=== PATIENT | male | born 1960 | race Caucasian/White ===

== ENCOUNTER → 2017-11-27 11:06 | Outpatient (CLI) | payer OTHER, MEDICAID, SELFPAY ==
--- NOTE | 2017-11-27 | DI.US.S_ITS ---
PROCEDURE: US ABDOMEN COMPLETE INDICATIONS: ABDOMINAL PAIN TECHNIQUE: Real-time scanning was performed of the abdominal and retroperitoneal organs, with image documentation. COMPARISON: None. FINDINGS: Liver: Liver is normal in size and homogeneous in increased echotexture. Gallbladder: No cholelithiasis. Normal gallbladder wall thickness. No pericholecystic fluid. Negative sonographic Brown's sign. Biliary ducts: Intrahepatic bile ducts are non-dilated. Extrahepatic bile duct caliber measures 6 mm. Normal is 6-7 mm or less in diameter, or 10 mm or less post-cholecystectomy. Pancreas: Visualized portions of the pancreas are sonographically normal. Spleen: Spleen is minimally enlarged in size and homogeneous in echotexture. Kidneys: Kidneys are normal in size and echotexture. Right kidney measures 10.4 cm long; left kidney measures 11.3 cm long. No hydronephrosis or nephrolithiasis. No solid masses. Aorta: Visualized aorta is normal in caliber at less than 3 cm. Iliacs: Obscured by gas. IVC: Obscured by bowel gas. Miscellaneous: Fat-containing anterior abdominal wall hernia immediately to the right of the umbilicus with opening measuring 1.0 x 1.9 cm. IMPRESSION: 1. Increased echogenicity most consistent with mild fatty infiltration. 2. Minimal splenomegaly. 3. Small fat-containing anterior abdominal wall hernia. Dictated by: Sd Hooks M.D. on 11/27/2017 at 13:10 Approved by: Sd Hooks M.D. on 11/27/2017 at 13:13
== END ==
PROVIDERS: Visit Provider Physician Assistant Medical
DX: R10.9 Unspecified abdominal pain (principal); R16.1 Splenomegaly, not elsewhere classified; K43.9 Ventral hernia without obstruction or gangrene
CPT/HCPCS: 76700

== ENCOUNTER → 2018-08-04 08:09 | Outpatient (CLI) | payer OTHER, MEDICAID, SELFPAY ==
[2018-08-04 10:28] LABS: Alanine Aminotransferase 38 IU/L (21-72); Albumin 4.5 g/dL (3.5-5.0); Albumin Globulin Ratio 1.7 (1.0-2.8); Alkaline Phosphatase 67 U/L (38-126); Aspartate Aminotransferase 28 IU/L (17-59); Bilirubin Total 1.3 mg/dL (0.2-1.3); Blood Urea Nitrogen 17 mg/dL (9-20); Calcium 9.6 mg/dL (8.4-10.2); Carbon Dioxide 31 mmol/L (22-32); Chloride 98 mmol/L (98-107); Cholesterol 197 mg/dL (140-199); Estimated Glomerular Filt Rate > 60.0 mL/min (>60); Globulin 2.6 g/dL (1.7-4.1); Glucose 100 mg/dL (70-100); HDL Cholesterol 32 mg/dL (40-60); HEMOLYSIS < 15 (0-50); LDL Cholesterol Calculated 113 mg/dL (<100); Potassium 4.2 mmol/L (3.4-5.1); Sodium 139 mmol/L (137-145); Total Protein 7.1 g/dL (6.3-8.2); Triglycerides 261 mg/dL (35-150)
== END ==
PROVIDERS: Visit Provider Physician Assistant Medical
DX: E78.00 Pure hypercholesterolemia, unspecified (principal)
CPT/HCPCS: 36415; 80053; 80061

== ENCOUNTER 2019-10-14 09:45 | Outpatient (RCR) | payer OTHER, MEDICAID, SELFPAY ==
--- NOTE | 2019-08-17 17:22 | PT.OIE ---
Current Diagnoses Radiculopathy, lumbar region (08/12/19) Visit Care Team Role Provider Type Sari Ford PA-C Attending Provider Non-Staff Primary Care Provider Referring Provider Specialty: Family Practice Address: [address] [place] [address], [id number] Email: Physical Therapy Initial Evaluation PT-OP-A Visit Information Start: 08/12/19 07:48 Freq: Status: Active Protocol: Document 08/12/19 11:15 [facility] (Rec: 08/17/19 17:21 [facility] [email or web address]) Out-Patient Physical Therapy Visit Information Visit Information Visit Type Initial Evaluation Visit Start Time 11:15 Visit Stop Time 12:00 Total Visit Minutes 45 Visit Number 1 Evaluation Information Evaluation Date 08/12/19 PT-OP-B Current Condition Start: 08/12/19 07:48 Freq: Status: Active Protocol: Document 08/12/19 14:15 [facility] (Rec: 08/12/19 14:23 [facility] [email or web address]) Current Condition History of Current Condition Onset Date May 2019 Current Complaints right sided sciatica History of Current Condition Mustapha reports his symptoms began late May when he was helping a neighbor move [email or web address]. His symptoms began with LBP and then progressed to right sided buttock pain and radicular pain down the right leg to the lateral aspect of his right foot. He notes this pain has effected his walking and now he is experiencing left sided knee pain. He has been on Gabapentin for nerve pain but doesn't feel this has helped. He did do a course of prednisone from 07/30/19-08/02 and this helped quite a bit but then the pain returned once he was done with the dose of prednisone. He reports he was ready to ask for more prednisone but then yesterday her made him self weed x 2 hours. He was bent over the whole time stretching his back and today his pain levels are much decreased. Treatment Goals Patient/Caregiver Goals to return to his prior level of function without pain Current Functional Impairments (Reported) Functional Limitations- Recreation/ limited in walking due to Hobbies radicular pain, pain with standing for long duration PT-OP-C Subjective Start: 08/12/19 07:48 Freq: Status: Active Protocol: Document 08/12/19 14:23 [facility] (Rec: 08/12/19 14:24 [facility] [email or web address]) OP-PT Pain Assessment Location Right LE Pain Location Details pain from right gluteal region down the right LE to the lateral foot Intensity 8 Scale Used Numeric (1 - 10) Description Radiating Frequency Constant Comments Pain Comments Ice helps so patient is icing often PT-OP-J Posture/Palpation/Skin Start: 08/12/19 07:48 Freq: Status: Active Protocol: Document 08/12/19 14:27 [facility] (Rec: 08/12/19 14:27 [facility] [email or web address]) Palpation Assessment Location One Palpation Location lumbar paraspinals Palpation Findings Soft Tissue Tightness,Muscle Guarding Palpation Details Muscle guarding and tightness of the lumbar paraspinals musculature PT-OP-K Range of Motion Start: 08/12/19 07:48 Freq: Status: Active Protocol: Document 08/12/19 14:24 [facility] (Rec: 08/12/19 14:25 [facility] [email or web address]) Lumbar Spine Range of Motion Lumbar Spine Active Flexion 80 Extension 15 Rotation Left 30 Rotation Right 30 Lateral Flexion Left 15 Lateral Flexion Right 15 ROM Limitations Soft Tissue Tightness Comments pain is not reproduced with lumbar spine ROM today Hip Goniometric Range of Motion Hip ROM Limitations Hip ROM Limitations Soft Tissue Tightness Comments pain in the right calf with hip flexion, pain in the right gluteal region with hip ER in piriformis stretch PT-OP-L Special Tests Start: 08/12/19 14:25 Freq: Status: Active Protocol: Document 08/12/19 14:25 [facility] (Rec: 08/12/19 14:26 [facility] [email or web address]) Special Tests Lumbar Spine Special Tests Straight Leg Raise Test Results + Comments right leg pain reproduced with SLR R PT-OP-Q Treatments Start: 08/12/19 07:48 Freq: Status: Active Protocol: Document 08/12/19 14:27 [facility] (Rec: 08/12/19 14:28 [facility] [email or web address]) Therapeutic Exercises Supine Exercises 2 Supine Exercise Name lower trunk rotation Side bilateral Reps/Minutes x 5 reps 1 Supine Exercise Name single knee to chest stretch Reps/Minutes 1-2 reps x 30 seconds Sitting Exercises 1 Sitting Exercise Name seated lumbar flexion Reps/Minutes 2 reps at 30 seconds each Standing Exercises 1 Standing Exercise Name standing dynamic hamstring stretch Reps/Minutes x 10 reps PT-OP-T Assessment and Plan Start: 08/12/19 07:48 Freq: Status: Active Protocol: Document 08/12/19 14:29 [facility] (Rec: 08/12/19 14:30 [facility] [email or web address]) Physical Therapy Assessment Rehab Potential Rehabilitation Potential Excellent Evaluation Complexity Number of Personal Factors/Comorbidities 0 Number of Body Systems Impaired 1-2 Clinical Presentation at Evaluation Stable Impairments Impairments Activity Tolerance,Functional Activities,Pain,Soft Tissue Mobility,Tone Other Impairments muscle guarding and spams Goals Four Impairment hip tightness with + dural symptoms on SLR Intermediate Goal (LTG) Mustapha is able to stretch his piriformis and hamstring muscle without c/o dural tension LTG Duration 8 weeks Three Impairment muscle guarding and spasm of the lumbar paraspinals and piriformis Short Term Goal (STG) Mustapha is shown self release techniques to hold improve the fascial mobility of the piriformis and lumbar parspinal musculature STG Duration 4 weeks Two Impairment Pain prevents Mustapha from walking more than 1/2 mile Fire Management Officer Goal (LTG) Mustapha is able to increase his walking to 2-3 miles without complaints of radicular or buttock pain LTG Duration 8 weeks One Impairment Right sided radicular pain rated 8/10 Short Term Goal (STG) Pt reports overall reduced complaints of radicular pain to 1-2/10 STG Duration 5 weeks Assessment Summary Assessment Mustapha presents to physical therapy today with symptoms of low back pain and right sided sciatica symptoms. His symptoms began in May 2019 with low back pain after helping a neighbor move tile. His symptoms then progressed to right sided sciatic symptoms with chief complaints of pain in the right gluteal region. He also reports that his left knee has begun hurting due to compensation from his right side. He has tried a course of prednisone from 07/30/19-08/03/19 which helped quite a bit while he has on the prednisone. Once off the prednisone his symptoms returned. Yesterday though he reports he sent out and pulled weeds x 2 hours. He was bent from the waist and was really trying to stretch while he was pulling weeds. Today he woke up with considerably less pain. He was experiencing some of the lateral foot pain but notes it is not nearly what it has been. With examination SLR on the R is positive and there is muscle guarding and tightness of the lumbar paraspinals. I started Mustapha with lumbar flexion exercises today as the position he was in from weeding seemed to really help him. Treatment will progress to manual therapy techniques to help decrease muscle tightness and tension and a core stabilzation program as well has hip flexibility exercises. Physical Therapy Plan Frequency and Duration Frequency of Treatment 2x/Week Duration of Treatment 8 Plan of Care Start Date 08/12/19 Plan of Care End Date 10/07/19 Therapeutic Interventions Therapeutic Interventions Home Exercise Program,Manual Therapy,Patient/Caregiver Education,Self-Care/Home Management,Soft Tissue Mobilization,Therapeutic Exercises Next Visit Focus/Plan Next Note Type Treatment Note Next Visit Plan review stretches for the low back and begin soft tissue and myofascial release over the low back for the lumbar paraspinals
--- NOTE | 2019-08-17 17:24 | PT.OPPOC ---
Physical, Occupational & Speech Therapy At [facility] Current Diagnoses Radiculopathy, lumbar region (08/12/19) Visit Care Team Role Provider Type Sari Ford PA-C Attending Provider Non-Staff Primary Care Provider Referring Provider Specialty: Family Practice Address: [address] [place] [address], [id number] Email: Plan Of Care PT-OP-T Assessment and Plan Start: 08/12/19 07:48 Freq: Status: Active Protocol: Document 08/12/19 14:29 [facility] (Rec: 08/12/19 14:30 [facility] [email or web address]) Physical Therapy Assessment Rehab Potential Rehabilitation Potential Excellent Evaluation Complexity Number of Personal Factors/Comorbidities 0 Number of Body Systems Impaired 1-2 Clinical Presentation at Evaluation Stable Impairments Impairments Activity Tolerance,Functional Activities,Pain,Soft Tissue Mobility,Tone Other Impairments muscle guarding and spams Goals Four Impairment hip tightness with + dural symptoms on SLR Epic Kaleidoscope Analyst Goal (LTG) Mustapha is able to stretch his piriformis and hamstring muscle without c/o dural tension LTG Duration 8 weeks Three Impairment muscle guarding and spasm of the lumbar paraspinals and piriformis Short Term Goal (STG) Mustapha is shown self release techniques to hold improve the fascial mobility of the piriformis and lumbar parspinal musculature STG Duration 4 weeks Two Impairment Pain prevents Mustapha from walking more than 1/2 mile Halfway Goal (LTG) Mustapha is able to increase his walking to 2-3 miles without complaints of radicular or buttock pain LTG Duration 8 weeks One Impairment Right sided radicular pain rated 8/10 Short Term Goal (STG) Pt reports overall reduced complaints of radicular pain to 1-2/10 STG Duration 5 weeks Assessment Summary Assessment Mustapha presents to physical therapy today with symptoms of low back pain and right sided sciatica symptoms and radicular pain R His symptoms began in May 2019 with low back pain after helping a neighbor move tile. His symptoms then progressed to right sided sciatic symptoms to his right lateral foot with chief complaints of pain in the right gluteal region. He also reports that his left knee has started hurting due to compensation from his right side. He has tried a course of prednisone from 07/30/19-08/03/19 which helped quite a bit while he has on the prednisone. Once off the prednisone his symptoms returned. Yesterday though he reports he went out and pulled weeds x 2 hours. He was bent from the waist and was really trying to stretch while he was pulling weeds. Today he woke up with considerably less pain. He was experiencing some of the lateral foot pain but notes it is not nearly what it has been. With examination SLR on the R is positive and there is muscle guarding and tightness of the lumbar paraspinals. I started Mustapha with lumbar flexion exercises today as the position he was in from weeding seemed to really help him. Treatment will progress to manual therapy techniques to help decrease muscle tightness and tension and a core stabilization program as well has hip flexibility exercises. Physical Therapy Plan Frequency and Duration Frequency of Treatment 2x/Week Duration of Treatment 8 Plan of Care Start Date 08/12/19 Plan of Care End Date 10/07/19 Therapeutic Interventions Therapeutic Interventions Home Exercise Program,Manual Therapy,Patient/Caregiver Education,Self-Care/Home Management,Soft Tissue Mobilization,Therapeutic Exercises Next Visit Focus/Plan Next Note Type Treatment Note Next Visit Plan review stretches for the low back and begin soft tissue and myofascial release over the low back for the lumbar paraspinals Plan of Care Dates Plan of Care Start Date 08/12/19 Plan of Care End Date 10/07/19 Electronically Signed by: Tonia Champion, PT 08/17/19 [id number] Please Sign and Return: I have reviewed this Plan of Care and certify that the skilled therapy services above are required to meet the patient?s needs. Physician Signature Date Printed Name and Credentials Clinical Instructor Signature Printed Name and Credentials
--- NOTE | 2019-08-19 12:52 | PT.OTN ---
Current Diagnoses Radiculopathy, lumbar region (08/19/19) Physical Therapy Treatment Note PT-OP-A Visit Information Start: 08/12/19 07:48 Freq: Status: Active Protocol: Document 08/19/19 12:44 [facility] (Rec: 08/19/19 12:52 [facility] [email or web address] Out-Patient Physical Therapy Visit Information Visit Information Visit Type Treatment Note Visit Start Time 09:45 Visit Stop Time 10:30 Total Visit Minutes 45 Visit Number 2 Evaluation Information Evaluation Date 08/12/19 PT-OP-B Current Condition Start: 08/12/19 07:48 Freq: Status: Active Protocol: Document 08/12/19 14:15 [facility] (Rec: 08/12/19 14:23 [facility] [email or web address]) Current Condition History of Current Condition Onset Date May 2019 Current Complaints right sided sciatica History of Current Condition Mustapha reports his symptoms began late May when he was helping a neighbor move tile. His symptoms began with LBP and then progressed to right sided buttock pain and radicular pain down the right leg to the lateral aspect of his right foot. He notes this pain has effected his walking and now he is experiencing left sided knee pain. He has been on Gabapentin for nerve pain but doesn't feel this has helped. He did do a course of prednisone from 07/30/19-08/02 and this helped quite a bit but then the pain returned once he was done with the dose of prednisone. He reports he was ready to ask for more prednisone but then yesterday her made him self weed x 2 hours. He was bent over the whole time stretching his back and today his pain levels are much decreased. Treatment Goals Patient/Caregiver Goals to return to his prior level of function without pain Current Functional Impairments (Reported) Functional Limitations- Recreation/ limited in walking due to Hobbies radicular pain, pain with standing for long duration PT-OP-C Subjective Start: 08/12/19 07:48 Freq: Status: Active Protocol: Document 08/19/19 12:44 [facility] (Rec: 08/19/19 12:52 [facility] [email or web address] OP-PT Subjective Patient Comments Patient Comments pt notes he hasn't gottne the relief from bending over and stretching his back while gardening that he did get last week. He continues to report right sided sciatic pain and buttock pain. This week he feels it into his anterior hip and he is not sure if this is from compensation or not. PT-OP-J Posture/Palpation/Skin Start: 08/12/19 07:48 Freq: Status: Active Protocol: Document 08/12/19 14:27 [facility] (Rec: 08/12/19 14:27 [facility] [email or web address]) Palpation Assessment Location One Palpation Location lumbar paraspinals Palpation Findings Soft Tissue Tightness,Muscle Guarding Palpation Details Muscle guarding and tightness of the lumbar paraspinal musculature PT-OP-K Range of Motion Start: 08/12/19 07:48 Freq: Status: Active Protocol: Document 08/12/19 14:24 [facility] (Rec: 08/12/19 14:25 [facility] [email or web address]) Lumbar Spine Range of Motion Lumbar Spine Active Flexion 80 Extension 15 Rotation Left 30 Rotation Right 30 Lateral Flexion Left 15 Lateral Flexion Right 15 ROM Limitations Soft Tissue Tightness Comments pain is not reproduced with lumbar spine ROM today Hip Goniometric Range of Motion Hip ROM Limitations Hip ROM Limitations Soft Tissue Tightness Comments pain in the right calf with hip flexion, pain in the right gluteal region with hip ER in piriformis stretch PT-OP-L Special Tests Start: 08/12/19 14:25 Freq: Status: Active Protocol: Document 08/12/19 14:25 [facility] (Rec: 08/12/19 14:26 [facility] [email or web address]) Special Tests Lumbar Spine Special Tests Straight Leg Raise Test Results + Comments right leg pain repoduced with SLR R PT-OP-Q Treatments Start: 08/12/19 07:48 Freq: Status: Active Protocol: Document 08/19/19 12:44 [facility] (Rec: 08/19/19 12:52 [facility] [email or web address]) Therapeutic Exercises Prone Exercises 1 Prone Exercise Name yamileth pose Reps/Minutes 1-2 reps holding 1-2 minutes Other Exercises 1 Other Exercise Name 1/2 kneeling hip flexor stretch Reps/Minutes 1-2 reps holding 1-2 minutes Manual Therapy Treatment Soft Tissue Mobilization 1 Body Location lumbar paraspinals, QL, piriformis Mobilization Type Myofascial Release Body Position Prone Comments prone over body pillow, MFR to release the tightness in the paraspinals. I found more tightness actually on the left paraspinals than the right. Decreased spinal mobility into extension of the upper lumbar and lower thoracic spine PT-OP-T Assessment and Plan Start: 08/12/19 07:48 Freq: Status: Active Protocol: Document 08/19/19 12:44 [facility] (Rec: 08/19/19 12:52 [facility] [email or web address]) Physical Therapy Assessment Assessment Summary Assessment lumbar paraspinal tightness was found left greater than right. Pt may benefit from a trial of lumbar traction next visit. Physical Therapy Plan Frequency and Duration Frequency of Treatment 2x/Week Duration of Treatment 8 Plan of Care Start Date 08/12/19 Plan of Care End Date 10/07/19 Therapeutic Interventions Therapeutic Interventions Home Exercise Program,Manual Therapy,Patient/Caregiver Education,Self-Care/Home Management,Soft Tissue Mobilization,Therapeutic Exercises Next Visit Focus/Plan Next Note Type Treatment Note Next Visit Plan review stretches for the low back and assess tolerance to myofascial release over the low back for the lumbar paraspinals. A trial of lumbar traction may be beneficial.
--- NOTE | 2019-08-26 17:28 | PT.OTN ---
Current Diagnoses Radiculopathy, lumbar region (08/26/19) Physical Therapy Treatment Note PT-OP-A Visit Information Start: 08/12/19 07:48 Freq: Status: Active Protocol: Document 08/26/19 16:45 DCW (Rec: 08/26/19 17:28 DCW [id number]) Out-Patient Physical Therapy Visit Information Visit Information Visit Type Treatment Note Visit Start Time 16:45 Visit Stop Time 17:30 Total Visit Minutes 45 Visit Number 3 Evaluation Information Evaluation Date 08/12/19 PT-OP-B Current Condition Start: 08/12/19 07:48 Freq: Status: Active Protocol: Document 08/12/19 14:15 [facility] (Rec: 08/12/19 14:23 [facility] [email or web address]) Current Condition History of Current Condition Onset Date May 2019 Current Complaints right sided sciatica History of Current Condition Mustapha reports his symptoms began late May when he was helping a neighbor move tile. His symptoms began with LBP and then progressed to right sided buttock pain and radicular pain down the right leg to the lateral aspect of his right foot. He notes this pain has effected his walking and now he is experiencing left sided knee pain. He has been on Gabapentin for nerve pain but doesn't feel this has helped. He did do a course of prednisone from 07/30/19-08/02 and this helped quite a bit but then the pain returned once he was done with the dose of prednisone. He reports he was ready to ask for more prednisone but then yesterday her made him self weed x 2 hours. He was bent over the whole time stretching his back and today his pain levels are much decreased. Treatment Goals Patient/Caregiver Goals to return to his prior level of function without pain Current Functional Impairments (Reported) Functional Limitations- Recreation/ limited in walking due to Hobbies radicular pain, pain with standing for long duration PT-OP-C Subjective Start: 08/12/19 07:48 Freq: Status: Active Protocol: Document 08/26/19 16:45 DCW (Rec: 08/26/19 17:28 DCW [id number]) OP-PT Subjective Patient Comments Patient Comments Pt reports he has been feeling a bit better, pain is around 5/10, but he was able to sleep better than usual last night. PT-OP-J Posture/Palpation/Skin Start: 08/12/19 07:48 Freq: Status: Active Protocol: Document 08/12/19 14:27 [facility] (Rec: 08/12/19 14:27 [facility] [email or web address]) Palpation Assessment Location One Palpation Location lumbar paraspinals Palpation Findings Soft Tissue Tightness,Muscle Guarding Palpation Details Muscle guarding and tightness of the lumbar paraspinal musculature PT-OP-K Range of Motion Start: 08/12/19 07:48 Freq: Status: Active Protocol: Document 08/12/19 14:24 [facility] (Rec: 08/12/19 14:25 [facility] [email or web address]) Lumbar Spine Range of Motion Lumbar Spine Active Flexion 80 Extension 15 Rotation Left 30 Rotation Right 30 Lateral Flexion Left 15 Lateral Flexion Right 15 ROM Limitations Soft Tissue Tightness Comments pain is not reproduced with lumbar spine ROM today Hip Goniometric Range of Motion Hip ROM Limitations Hip ROM Limitations Soft Tissue Tightness Comments pain in the right calf with hip flexion, pain in the right gluteal region with hip ER in piriformis stretch PT-OP-L Special Tests Start: 08/12/19 14:25 Freq: Status: Active Protocol: Document 08/12/19 14:25 [facility] (Rec: 08/12/19 14:26 [facility] [email or web address]) Special Tests Lumbar Spine Special Tests Straight Leg Raise Test Results + Comments right leg pain repoduced with SLR R PT-OP-Q Treatments Start: 08/12/19 07:48 Freq: Status: Active Protocol: Document 08/26/19 16:45 DCW (Rec: 08/26/19 17:28 DCW [id number]) Gym Equipment Therapeutic Ball 1 Exercise Details Low trunk rotations Ball Size/Color Red - 55 cm Body Position Supine Therapeutic Exercises Supine Exercises 5 Supine Exercise Name Piriformis stretch - knee to opposite shoulder Side bilateral 4 Supine Exercise Name Hamstring Stretch Side bilateral 3 Supine Exercise Name Psoas stretch Side bilateral Reps/Minutes 2x 40 Comments Leg off table 2 Supine Exercise Name lower trunk rotation Side bilateral Reps/Minutes x 5 reps Sitting Exercises 1 Sitting Exercise Name seated lumbar flexion Reps/Minutes 2 reps at 30 seconds each Manual Therapy Treatment Soft Tissue Mobilization 2 Body Location Piriformis Mobilization Type Strumming,Sustained Pressure, Trigger Point Release Intensity/Depth Deep Body Position Sidelying Manual Traction Lumbar Details Long-axis LE traction Body Position Supine PT-OP-T Assessment and Plan Start: 08/12/19 07:48 Freq: Status: Active Protocol: Document 08/26/19 16:45 DCW (Rec: 08/26/19 17:28 DCW [id number]) Physical Therapy Assessment Impairments Impairments Activity Tolerance,Functional Activities,Pain,Soft Tissue Mobility,Tone Other Impairments muscle guarding and spams Goals Four Impairment hip tightness with + dural symptoms on SLR Half-Way Goal (LTG) Mustapha is able to stretch his piriformis and hamstring muscle without c/o dural tension LTG Duration 8 weeks Three Impairment muscle guarding and spasm of the lumbar paraspinals and piriformis Short Term Goal (STG) Mustapha is shown self release techniques to hold improve the fascial mobility of the piriformis and lumbar parspinal musculature STG Duration 4 weeks Two Impairment Pain prevents Mustapha from walking more than 1/2 mile Casing Man Goal (LTG) Mustapha is maggi to increase his walking to 2-3 miles without complaints of radicular or buttock pain LTG Duration 8 weeks One Impairment Right sided radicular pain rated 8/10 Short Term Goal (STG) Pt reports overall reduced complaints of radicular pain to 1-2/10 STG Duration 5 weeks Assessment Summary Assessment Pt reported relief following traction and STM to right piriformis. Recommended pt use trnnis to self-mobilize piriformis, as well as HEP for HS and piriformis stretching. Continue flexibility training and STM with further therapy. Physical Therapy Plan Frequency and Duration Frequency of Treatment 2x/Week Duration of Treatment 8 Plan of Care Start Date 08/12/19 Plan of Care End Date 10/07/19 Therapeutic Interventions Therapeutic Interventions Home Exercise Program,Manual Therapy,Patient/Caregiver Education,Self-Care/Home Management,Soft Tissue Mobilization,Therapeutic Exercises Next Visit Focus/Plan Next Note Type Treatment Note Next Visit Plan review stretches for the low back and assess tolerance to myofascial release over the low back for the lumbar paraspinals. A trial of lumbar traction may be beneficial.
--- NOTE | 2019-08-31 18:25 | PT.OTN ---
Current Diagnoses Radiculopathy, lumbar region (08/31/19) Physical Therapy Treatment Note PT-OP-A Visit Information Start: 08/12/19 07:48 Freq: Status: Active Protocol: Document 08/31/19 18:13 [facility] (Rec: 08/31/19 18:24 [facility] [email or web address]) Out-Patient Physical Therapy Visit Information Visit Information Visit Type Treatment Note Visit Start Time 16:10 Visit Stop Time 16:55 Total Visit Minutes 45 Visit Number 4 PT-OP-B Current Condition Start: 08/12/19 07:48 Freq: Status: Active Protocol: Document 08/12/19 14:15 [facility] (Rec: 08/12/19 14:23 [facility] [email or web address]) Current Condition History of Current Condition Onset Date May 2019 Current Complaints right sided sciatica History of Current Condition Mustapha reports his symptoms began late May when he was helping a neighbor move tile. His symptoms began with LBP and then progressed to right sided buttock pain and radicular pain down the right leg to the lateral aspect of his right foot. He notes this pain has effected his walking and now he is experiencing left sided knee pain. He has been on Gabapentin for nerve pain but doesn't feel this has helped. He did do a course of prednisone from 07/30/19-08/02 and this helped quite a bit but then the pain returned once he was done with the dose of prednisone. He reports he was ready to ask for more prednisone but then yesterday her made him self weed x 2 hours. He was bent over the whole time stretching his back and today his pain levels are much decreased. Treatment Goals Patient/Caregiver Goals to return to his prior level of function without pain Current Functional Impairments (Reported) Functional Limitations- Recreation/ limited in walking due to Hobbies radicular pain, pain with standing for long duration PT-OP-C Subjective Start: 08/12/19 07:48 Freq: Status: Active Protocol: Document 08/31/19 18:13 [facility] (Rec: 08/31/19 18:24 [facility] [email or web address]) OP-PT Subjective Patient Comments Patient Comments pt reports he still hasn't been able to stretch his back like he did in the garden. He has been working on his stretching and ice is helping. Still c/o the nerve pain in the gluteal region with sciatica symptoms down right LE PT-OP-J Posture/Palpation/Skin Start: 08/12/19 07:48 Freq: Status: Active Protocol: Document 08/12/19 14:27 [facility] (Rec: 08/12/19 14:27 [facility] [email or web address]) Palpation Assessment Location One Palpation Location lumbar paraspinals Palpation Findings Soft Tissue Tightness,Muscle Guarding Palpation Details Muscle guarding and tightness of the lumbar paraspinal musculature PT-OP-K Range of Motion Start: 08/12/19 07:48 Freq: Status: Active Protocol: Document 08/12/19 14:24 [facility] (Rec: 08/12/19 14:25 [facility] [email or web address]) Lumbar Spine Range of Motion Lumbar Spine Active Flexion 80 Extension 15 Rotation Left 30 Rotation Right 30 Lateral Flexion Left 15 Lateral Flexion Right 15 ROM Limitations Soft Tissue Tightness Comments pain is not reproduced with lumbar spine ROM today Hip Goniometric Range of Motion Hip ROM Limitations Hip ROM Limitations Soft Tissue Tightness Comments pain in the right calf with hip flexion, pain in the right gluteal region with hip ER in piriformis stretch PT-OP-L Special Tests Start: 08/12/19 14:25 Freq: Status: Active Protocol: Document 08/12/19 14:25 [facility] (Rec: 08/12/19 14:26 [facility] [email or web address]) Special Tests Lumbar Spine Special Tests Straight Leg Raise Test Results + Comments right leg pain repoduced with SLR R PT-OP-Q Treatments Start: 08/12/19 07:48 Freq: Status: Active Protocol: Document 08/31/19 18:13 [facility] (Rec: 08/31/19 18:24 [facility] [email or web address]) Manual Therapy Treatment Soft Tissue Mobilization 2 Body Location Piriformis Mobilization Type Strumming,Sustained Pressure, Trigger Point Release Intensity/Depth Deep Body Position Sidelying 1 Body Location lumbar paraspinals, QL, piriformis Mobilization Type Myofascial Release Body Position Prone Comments prone over body pillow, MFR to release the tightness in the paraspinals. I found more tightness actually on the left paraspinals than the right. Decreased spinal mobility into extension of the upper lumbar and lower thoracic spine Manual Techniques 1 Type trial of myokinesthetic system L5-S1 Comments ccalf tightness on the right, talked to pt about increaseing stretching in his calfs and also rolling foot on golf ball while sitting for work PT-OP-T Assessment and Plan Start: 08/12/19 07:48 Freq: Status: Active Protocol: Document 08/31/19 18:13 [facility] (Rec: 08/31/19 18:24 [facility] [email or web address]) Physical Therapy Assessment Assessment Summary Assessment Tightness right gastroc/soleus comples with myokinesthetic system tx. Added in calf stretches and self mobilization of the ball of foot with small ball. Pt continues to self mobilize piriformis with tennis ball Physical Therapy Plan Frequency and Duration Frequency of Treatment 2x/Week Duration of Treatment 8 Plan of Care Start Date 08/12/19 Plan of Care End Date 10/07/19 Next Visit Focus/Plan Next Note Type Treatment Note Next Visit Plan review stretches for the low back and assess tolerance to myofascial release over the low back for the lumbar paraspinals. Lumbar traction
--- NOTE | 2019-09-02 12:05 | PT.OTN ---
Current Diagnoses Radiculopathy, lumbar region (09/02/19) Physical Therapy Treatment Note PT-OP-A Visit Information Start: 08/12/19 07:48 Freq: Status: Active Protocol: Document 09/02/19 11:15 DCW (Rec: 09/02/19 12:05 DCW [id number]) Out-Patient Physical Therapy Visit Information Visit Information Visit Type Treatment Note Visit Start Time 11:15 Visit Stop Time 12:00 Total Visit Minutes 45 Visit Number 5 Evaluation Information Evaluation Date 08/12/19 PT-OP-B Current Condition Start: 08/12/19 07:48 Freq: Status: Active Protocol: Document 08/12/19 14:15 [facility] (Rec: 08/12/19 14:23 [facility] [email or web address]) Current Condition History of Current Condition Onset Date May 2019 Current Complaints right sided sciatica History of Current Condition Mustapha reports his symptoms began late May when he was helping a neighbor move tile. His symptoms began with LBP and then progressed to right sided buttock pain and radicular pain down the right leg to the lateral aspect of his right foot. He notes this pain has effected his walking and now he is experiencing left sided knee pain. He has been on Gabapentin for nerve pain but doesn't feel this has helped. He did do a course of prednisone from 07/30/19-08/02 and this helped quite a bit but then the pain returned once he was done with the dose of prednisone. He reports he was ready to ask for more prednisone but then yesterday her made him self weed x 2 hours. He was bent over the whole time stretching his back and today his pain levels are much decreased. Treatment Goals Patient/Caregiver Goals to return to his prior level of function without pain Current Functional Impairments (Reported) Functional Limitations- Recreation/ limited in walking due to Hobbies radicular pain, pain with standing for long duration PT-OP-C Subjective Start: 08/12/19 07:48 Freq: Status: Active Protocol: Document 09/02/19 11:15 DCW (Rec: 09/02/19 12:05 DCW [id number]) OP-PT Subjective Patient Comments Patient Comments PT reports pain has been so bad the last two nights that he was woken up at 3 am and thought about going to the ER, but was able to better control pain with icing. PT-OP-J Posture/Palpation/Skin Start: 08/12/19 07:48 Freq: Status: Active Protocol: Document 08/12/19 14:27 [facility] (Rec: 08/12/19 14:27 [facility] [email or web address]) Palpation Assessment Location One Palpation Location lumbar paraspinals Palpation Findings Soft Tissue Tightness,Muscle Guarding Palpation Details Muscle guarding and tightness of the lumbar paraspinal musculature PT-OP-K Range of Motion Start: 08/12/19 07:48 Freq: Status: Active Protocol: Document 08/12/19 14:24 [facility] (Rec: 08/12/19 14:25 [facility] [email or web address]) Lumbar Spine Range of Motion Lumbar Spine Active Flexion 80 Extension 15 Rotation Left 30 Rotation Right 30 Lateral Flexion Left 15 Lateral Flexion Right 15 ROM Limitations Soft Tissue Tightness Comments pain is not reproduced with lumbar spine ROM today Hip Goniometric Range of Motion Hip ROM Limitations Hip ROM Limitations Soft Tissue Tightness Comments pain in the right calf with hip flexion, pain in the right gluteal region with hip ER in piriformis stretch PT-OP-L Special Tests Start: 08/12/19 14:25 Freq: Status: Active Protocol: Document 08/12/19 14:25 [facility] (Rec: 08/12/19 14:26 [facility] [email or web address]) Special Tests Lumbar Spine Special Tests Straight Leg Raise Test Results + Comments right leg pain repoduced with SLR R PT-OP-Q Treatments Start: 08/12/19 07:48 Freq: Status: Active Protocol: Document 09/02/19 11:15 DCW (Rec: 09/02/19 12:05 DCW [id number]) Gym Equipment Therapeutic Ball 2 Exercise Details Trunk rotations vs T-band resistance Ball Size/Color Green - 65 cm Lv 3 T-band Body Position Sitting Therapeutic Exercises Supine Exercises 5 Supine Exercise Name Piriformis stretch - knee to opposite shoulder Side bilateral 2 Supine Exercise Name lower trunk rotation Side bilateral Reps/Minutes x 5 reps Manual Therapy Treatment Soft Tissue Mobilization 3 Body Location Psoas Mobilization Type Sustained Pressure,Trigger Point Release Intensity/Depth Deep Body Position Supine 2 Body Location Piriformis Mobilization Type Strumming,Sustained Pressure, Trigger Point Release Intensity/Depth Deep Body Position Sidelying 1 Body Location lumbar paraspinals, QL, piriformis Mobilization Type Myofascial Release Body Position Prone PT-OP-T Assessment and Plan Start: 08/12/19 07:48 Freq: Status: Active Protocol: Document 09/02/19 11:15 DCW (Rec: 09/02/19 12:05 DCW [id number]) Physical Therapy Assessment Impairments Impairments Activity Tolerance,Functional Activities,Pain,Soft Tissue Mobility,Tone Other Impairments muscle guarding and spams Goals Four Impairment hip tightness with + dural symptoms on SLR Mcfp Goal (LTG) Mustapha is able to stretch his piriformis and hamstring muscle without c/o dural tension LTG Duration 8 weeks Three Impairment muscle guarding and spasm of the lumbar paraspinals and piriformis Short Term Goal (STG) Mustapha is shown self release techniques to hold improve the fascial mobility of the piriformis and lumbar parspinal musculature STG Duration 4 weeks Two Impairment Pain prevents Mustapha from walking more than 1/2 mile [employer] Goal (LTG) Mustapha is maggi to increase his walking to 2-3 miles without complaints of radicular or buttock pain LTG Duration 8 weeks One Impairment Right sided radicular pain rated 8/10 Short Term Goal (STG) Pt reports overall reduced complaints of radicular pain to 1-2/10 STG Duration 5 weeks Assessment Summary Assessment Pt again felt substantially better following his treatment session today, will hopefully be able to continue to decrease hypertonia throughout his paraspinal and hip musculature. Physical Therapy Plan Frequency and Duration Frequency of Treatment 2x/Week Duration of Treatment 8 Plan of Care Start Date 08/12/19 Plan of Care End Date 10/07/19 Therapeutic Interventions Therapeutic Interventions Home Exercise Program,Manual Therapy,Patient/Caregiver Education,Self-Care/Home Management,Soft Tissue Mobilization,Therapeutic Exercises Next Visit Focus/Plan Next Note Type Treatment Note Next Visit Plan review stretches for the low back and assess tolerance to myofascial release over the low back for the lumbar paraspinals. A trial of lumbar traction may be beneficial.
--- NOTE | 2019-09-07 15:12 | PT.OTN ---
Current Diagnoses Radiculopathy, lumbar region (09/07/19) Physical Therapy Treatment Note PT-OP-A Visit Information Start: 08/12/19 07:48 Freq: Status: Active Protocol: Document 09/07/19 15:07 [facility] (Rec: 09/07/19 15:12 [facility] [email or web address]) Out-Patient Physical Therapy Visit Information Visit Information Visit Type Treatment Note Visit Start Time 13:00 Visit Stop Time 13:45 Total Visit Minutes 45 Visit Number 6 PT-OP-B Current Condition Start: 08/12/19 07:48 Freq: Status: Active Protocol: Document 08/12/19 14:15 [facility] (Rec: 08/12/19 14:23 [facility] [email or web address]) Current Condition History of Current Condition Onset Date May 2019 Current Complaints right sided sciatica History of Current Condition Mustapha reports his symptoms began late May when he was helping a neighbor move tile. His symptoms began with LBP and then progressed to right sided buttock pain and radicular pain down the right leg to the lateral aspect of his right foot. He notes this pain has effected his walking and now he is experiencing left sided knee pain. He has been on Gabapentin for nerve pain but doesn't feel this has helped. He did do a course of prednisone from 07/30/19-08/02 and this helped quite a bit but then the pain returned once he was done with the dose of prednisone. He reports he was ready to ask for more prednisone but then yesterday her made him self weed x 2 hours. He was bent over the whole time stretching his back and today his pain levels are much decreased. Treatment Goals Patient/Caregiver Goals to return to his prior level of function without pain Current Functional Impairments (Reported) Functional Limitations- Recreation/ limited in walking due to Hobbies radicular pain, pain with standing for long duration PT-OP-C Subjective Start: 08/12/19 07:48 Freq: Status: Active Protocol: Document 09/07/19 15:07 [facility] (Rec: 09/07/19 15:12 [facility] [email or web address]) OP-PT Subjective Patient Comments Patient Comments pt reports he did really well after last visit and feels things are starting to get better now. He isn't getting the severe pain in his right gluteal or the lateral side of his right foot. He feels the work done on his hip flexor last visit really helped him. He also reports he is no longer taking the gabapentin and was put on Amitriptylene. PT-OP-J Posture/Palpation/Skin Start: 08/12/19 07:48 Freq: Status: Active Protocol: Document 08/12/19 14:27 [facility] (Rec: 08/12/19 14:27 [facility] [email or web address]) Palpation Assessment Location One Palpation Location lumbar paraspinals Palpation Findings Soft Tissue Tightness,Muscle Guarding Palpation Details Muscle guarding and tightness of the lumbar paraspinal musculature PT-OP-K Range of Motion Start: 08/12/19 07:48 Freq: Status: Active Protocol: Document 08/12/19 14:24 [facility] (Rec: 08/12/19 14:25 [facility] [email or web address]) Lumbar Spine Range of Motion Lumbar Spine Active Flexion 80 Extension 15 Rotation Left 30 Rotation Right 30 Lateral Flexion Left 15 Lateral Flexion Right 15 ROM Limitations Soft Tissue Tightness Comments pain is not reproduced with lumbar spine ROM today Hip Goniometric Range of Motion Hip ROM Limitations Hip ROM Limitations Soft Tissue Tightness Comments pain in the right calf with hip flexion, pain in the right gluteal region with hip ER in piriformis stretch PT-OP-L Special Tests Start: 08/12/19 14:25 Freq: Status: Active Protocol: Document 08/12/19 14:25 [facility] (Rec: 08/12/19 14:26 [facility] [email or web address]) Special Tests Lumbar Spine Special Tests Straight Leg Raise Test Results + Comments right leg pain repoduced with SLR R PT-OP-Q Treatments Start: 08/12/19 07:48 Freq: Status: Active Protocol: Document 09/07/19 15:07 [facility] (Rec: 09/07/19 15:12 [facility] [email or web address]) Manual Therapy Treatment Soft Tissue Mobilization 3 Body Location Psoas Mobilization Type Sustained Pressure,Trigger Point Release Intensity/Depth Deep Body Position Supine 2 Body Location Piriformis Mobilization Type Strumming,Sustained Pressure, Trigger Point Release Intensity/Depth Deep Body Position Sidelying 1 Body Location lumbar paraspinals, QL, piriformis Mobilization Type Myofascial Release Body Position Prone PT-OP-T Assessment and Plan Start: 08/12/19 07:48 Freq: Status: Active Protocol: Document 09/07/19 15:07 [facility] (Rec: 09/07/19 15:12 [facility] [email or web address]) Physical Therapy Assessment Assessment Summary Assessment Pt notes relief following treatment and has been trying to break up his computer work at home with stretches Physical Therapy Plan Frequency and Duration Frequency of Treatment 2x/Week Duration of Treatment 8 Plan of Care Start Date 08/12/19 Plan of Care End Date 10/07/19
--- NOTE | 2019-09-14 10:31 | PT.OTN ---
Current Diagnoses Radiculopathy, lumbar region (09/14/19) Physical Therapy Treatment Note PT-OP-A Visit Information Start: 08/12/19 07:48 Freq: Status: Active Protocol: Document 09/14/19 09:45 DCW (Rec: 09/14/19 10:31 DCW [id number]) Out-Patient Physical Therapy Visit Information Visit Information Visit Type Treatment Note Visit Start Time 09:45 Visit Stop Time 10:30 Total Visit Minutes 45 Visit Number 7 Evaluation Information Evaluation Date 08/12/19 PT-OP-B Current Condition Start: 08/12/19 07:48 Freq: Status: Active Protocol: Document 08/12/19 14:15 [facility] (Rec: 08/12/19 14:23 [facility] [email or web address]) Current Condition History of Current Condition Onset Date May 2019 Current Complaints right sided sciatica History of Current Condition Mustapha reports his symptoms began late May when he was helping a neighbor move tile. His symptoms began with LBP and then progressed to right sided buttock pain and radicular pain down the right leg to the lateral aspect of his right foot. He notes this pain has effected his walking and now he is experiencing left sided knee pain. He has been on Gabapentin for nerve pain but doesn't feel this has helped. He did do a course of prednisone from 07/30/19-08/02 and this helped quite a bit but then the pain returned once he was done with the dose of prednisone. He reports he was ready to ask for more prednisone but then yesterday her made him self weed x 2 hours. He was bent over the whole time stretching his back and today his pain levels are much decreased. Treatment Goals Patient/Caregiver Goals to return to his prior level of function without pain Current Functional Impairments (Reported) Functional Limitations- Recreation/ limited in walking due to Hobbies radicular pain, pain with standing for long duration PT-OP-C Subjective Start: 08/12/19 07:48 Freq: Status: Active Protocol: Document 09/14/19 09:45 DCW (Rec: 09/14/19 10:31 DCW [id number]) OP-PT Subjective Patient Comments Patient Comments Pt reports he is feeling a lot better, has been only at a 2/ 10 the past three days. PT-OP-J Posture/Palpation/Skin Start: 08/12/19 07:48 Freq: Status: Active Protocol: Document 08/12/19 14:27 [facility] (Rec: 08/12/19 14:27 [facility] [email or web address]) Palpation Assessment Location One Palpation Location lumbar paraspinals Palpation Findings Soft Tissue Tightness,Muscle Guarding Palpation Details Muscle guarding and tightness of the lumbar paraspinal musculature PT-OP-K Range of Motion Start: 08/12/19 07:48 Freq: Status: Active Protocol: Document 08/12/19 14:24 [facility] (Rec: 08/12/19 14:25 [facility] [email or web address]) Lumbar Spine Range of Motion Lumbar Spine Active Flexion 80 Extension 15 Rotation Left 30 Rotation Right 30 Lateral Flexion Left 15 Lateral Flexion Right 15 ROM Limitations Soft Tissue Tightness Comments pain is not reproduced with lumbar spine ROM today Hip Goniometric Range of Motion Hip ROM Limitations Hip ROM Limitations Soft Tissue Tightness Comments pain in the right calf with hip flexion, pain in the right gluteal region with hip ER in piriformis stretch PT-OP-L Special Tests Start: 08/12/19 14:25 Freq: Status: Active Protocol: Document 08/12/19 14:25 [facility] (Rec: 08/12/19 14:26 [facility] [email or web address]) Special Tests Lumbar Spine Special Tests Straight Leg Raise Test Results + Comments right leg pain repoduced with SLR R PT-OP-Q Treatments Start: 08/12/19 07:48 Freq: Status: Active Protocol: Document 09/14/19 09:45 DCW (Rec: 09/14/19 10:31 DCW [id number]) Gym Equipment Shuttle Recovery Unilateral Squats Resistance 75# Shuttle Recovery Platform Stable Reps/Time 2x15 Bilateral Squats Resistance 125# Shuttle Recovery Platform Stable Reps/Time 2x15 Shuttle Balance 1 Details Red Comments Wide TYESHA, Staggered Therapeutic Ball 2 Exercise Details Trunk rotations vs T-band resistance Ball Size/Color Green - 65 cm Lv 3 T-band Body Position Sitting Therapeutic Exercises Sidelying Exercises 1 Sidelying Exercise Name Open Book/Reach and Roll Side bilateral Other Exercises 2 Other Exercise Name Resisted Ambulation Resistance Blue Equipment Used T-band Comments Side-stepping 1 Other Exercise Name Thread the Needle Comments Quadruped Manual Therapy Treatment Soft Tissue Mobilization 3 Body Location Psoas Mobilization Type Sustained Pressure,Trigger Point Release Intensity/Depth Deep Body Position Supine 2 Body Location Piriformis Mobilization Type Strumming,Sustained Pressure, Trigger Point Release Intensity/Depth Deep Body Position Sidelying 1 Body Location lumbar paraspinals, QL, piriformis Mobilization Type Myofascial Release Body Position Prone PT-OP-T Assessment and Plan Start: 08/12/19 07:48 Freq: Status: Active Protocol: Document 09/14/19 09:45 DCW (Rec: 09/14/19 10:31 DCW [id number]) Physical Therapy Assessment Impairments Impairments Activity Tolerance,Functional Activities,Pain,Soft Tissue Mobility,Tone Other Impairments muscle guarding and spams Goals Four Impairment hip tightness with + dural symptoms on SLR Usp Goal (LTG) Mustapha is able to stretch his piriformis and hamstring muscle without c/o dural tension LTG Duration 8 weeks Three Impairment muscle guarding and spasm of the lumbar paraspinals and piriformis Short Term Goal (STG) Mustapha is shown self release techniques to hold improve the fascial mobility of the piriformis and lumbar parspinal musculature STG Duration 4 weeks Two Impairment Pain prevents Mustapha from walking more than 1/2 mile Box Nailer Goal (LTG) Mustapha is maggi to increase his walking to 2-3 miles without complaints of radicular or buttock pain LTG Duration 8 weeks One Impairment Right sided radicular pain rated 8/10 Short Term Goal (STG) Pt reports overall reduced complaints of radicular pain to 1-2/10 STG Duration 5 weeks Assessment Summary Assessment Pt doing very well at this time, came into his appointment with minimal complaints of pain, had no negative response with any TherEx or Manual therapy. If pt continues to do well, following his next scheduled appointment, recommend holding PT for a few weeks to ensure he does not worsen, and then discharge at an appropriate time. Physical Therapy Plan Frequency and Duration Frequency of Treatment 2x/Week Duration of Treatment 8 Plan of Care Start Date 08/12/19 Plan of Care End Date 10/07/19 Therapeutic Interventions Therapeutic Interventions Home Exercise Program,Manual Therapy,Patient/Caregiver Education,Self-Care/Home Management,Soft Tissue Mobilization,Therapeutic Exercises
--- NOTE | 2019-09-16 18:10 | PT.OTN ---
Current Diagnoses Radiculopathy, lumbar region (09/16/19) Physical Therapy Treatment Note PT-OP-A Visit Information Start: 08/12/19 07:48 Freq: Status: Active Protocol: Document 09/16/19 17:56 [facility] (Rec: 09/16/19 18:10 [facility] [email or web address]) Out-Patient Physical Therapy Visit Information Visit Information Visit Type Treatment Note Visit Start Time 12:45 Visit Stop Time 13:30 Total Visit Minutes 45 Visit Number 8 PT-OP-B Current Condition Start: 08/12/19 07:48 Freq: Status: Active Protocol: Document 08/12/19 14:15 [facility] (Rec: 08/12/19 14:23 [facility] [email or web address]) Current Condition History of Current Condition Onset Date May 2019 Current Complaints right sided sciatica History of Current Condition Mustapha reports his symptoms began late May when he was helping a neighbor move tile. His symptoms began with LBP and then progressed to right sided buttock pain and radicular pain down the right leg to the lateral aspect of his right foot. He notes this pain has effected his walking and now he is experiencing left sided knee pain. He has been on Gabapentin for nerve pain but doesn't feel this has helped. He did do a course of prednisone from 07/30/19-08/02 and this helped quite a bit but then the pain returned once he was done with the dose of prednisone. He reports he was ready to ask for more prednisone but then yesterday her made him self weed x 2 hours. He was bent over the whole time stretching his back and today his pain levels are much decreased. Treatment Goals Patient/Caregiver Goals to return to his prior level of function without pain Current Functional Impairments (Reported) Functional Limitations- Recreation/ limited in walking due to Hobbies radicular pain, pain with standing for long duration PT-OP-C Subjective Start: 08/12/19 07:48 Freq: Status: Active Protocol: Document 09/16/19 17:56 [facility] (Rec: 09/16/19 18:10 [facility] [email or web address]) OP-PT Subjective Patient Comments Patient Comments Pt reports he really has no pain at this point. He is very happy with his progress. PT-OP-J Posture/Palpation/Skin Start: 08/12/19 07:48 Freq: Status: Active Protocol: Document 08/12/19 14:27 [facility] (Rec: 08/12/19 14:27 [facility] [email or web address]) Palpation Assessment Location One Palpation Location lumbar paraspinals Palpation Findings Soft Tissue Tightness,Muscle Guarding Palpation Details Muscle guarding and tightness of the lumbar paraspinal musculature PT-OP-K Range of Motion Start: 08/12/19 07:48 Freq: Status: Active Protocol: Document 08/12/19 14:24 [facility] (Rec: 08/12/19 14:25 [facility] [email or web address]) Lumbar Spine Range of Motion Lumbar Spine Active Flexion 80 Extension 15 Rotation Left 30 Rotation Right 30 Lateral Flexion Left 15 Lateral Flexion Right 15 ROM Limitations Soft Tissue Tightness Comments pain is not reproduced with lumbar spine ROM today Hip Goniometric Range of Motion Hip ROM Limitations Hip ROM Limitations Soft Tissue Tightness Comments pain in the right calf with hip flexion, pain in the right gluteal region with hip ER in piriformis stretch PT-OP-L Special Tests Start: 08/12/19 14:25 Freq: Status: Active Protocol: Document 08/12/19 14:25 [facility] (Rec: 08/12/19 14:26 [facility] [email or web address]) Special Tests Lumbar Spine Special Tests Straight Leg Raise Test Results + Comments right leg pain repoduced with SLR R PT-OP-Q Treatments Start: 08/12/19 07:48 Freq: Status: Active Protocol: Document 09/16/19 17:56 [facility] (Rec: 09/16/19 18:10 [facility] [email or web address]) Therapeutic Exercises Supine Exercises 6 Supine Exercise Name Transverse abdominal stabilization with marches and heel slides Comments pt given handout for HEP 4 Supine Exercise Name Hamstring Stretch Side bilateral 1 Supine Exercise Name single knee to chest stretch Reps/Minutes 1-2 reps x 30 seconds Other Exercises 2 Comments HEP Manual Therapy Treatment Soft Tissue Mobilization 1 Body Location lumbar paraspinals, QL, piriformis Mobilization Type Myofascial Release Body Position Prone PT-OP-T Assessment and Plan Start: 08/12/19 07:48 Freq: Status: Active Protocol: Document 09/16/19 17:56 [facility] (Rec: 09/16/19 18:10 [facility] [email or web address]) Physical Therapy Assessment Assessment Summary Assessment pt doing much better now with little to no complaints of pain. His stretches and HEP was reviewed today and he was given lower abdominal exercises to work on at home. Hold PT for the next few weeks and if continues to do well we will DC PT Physical Therapy Plan Frequency and Duration Frequency of Treatment 2x/Week Duration of Treatment 8 Plan of Care Start Date 08/12/19 Plan of Care End Date 10/07/19 Therapeutic Interventions Therapeutic Interventions Home Exercise Program,Manual Therapy,Patient/Caregiver Education,Self-Care/Home Management,Soft Tissue Mobilization,Therapeutic Exercises Next Visit Focus/Plan Next Note Type Treatment Note Next Visit Plan Continue PT if patient feels that he needs further treatment. If he continues to do well We will DC PT
--- NOTE | 2019-10-14 10:18 | PT.OTN ---
Current Diagnoses Radiculopathy, lumbar region (10/14/19) Physical Therapy Treatment Note PT-OP-A Visit Information Start: 08/12/19 07:48 Freq: Status: Active Protocol: Document 10/14/19 09:45 DCW (Rec: 10/14/19 10:17 DCW [id number]) Out-Patient Physical Therapy Visit Information Visit Information Visit Type Treatment Note Visit Start Time 09:45 Visit Stop Time 10:12 Total Visit Minutes 27 Visit Number 9 Evaluation Information Evaluation Date 08/12/19 PT-OP-B Current Condition Start: 08/12/19 07:48 Freq: Status: Active Protocol: Document 08/12/19 14:15 [facility] (Rec: 08/12/19 14:23 [facility] [email or web address]) Current Condition History of Current Condition Onset Date May 2019 Current Complaints right sided sciatica History of Current Condition Mustapha reports his symptoms began late May when he was helping a neighbor move tile. His symptoms began with LBP and then progressed to right sided buttock pain and radicular pain down the right leg to the lateral aspect of his right foot. He notes this pain has effected his walking and now he is experiencing left sided knee pain. He has been on Gabapentin for nerve pain but doesn't feel this has helped. He did do a course of prednisone from 07/30/19-08/02 and this helped quite a bit but then the pain returned once he was done with the dose of prednisone. He reports he was ready to ask for more prednisone but then yesterday her made him self weed x 2 hours. He was bent over the whole time stretching his back and today his pain levels are much decreased. Treatment Goals Patient/Caregiver Goals to return to his prior level of function without pain Current Functional Impairments (Reported) Functional Limitations- Recreation/ limited in walking due to Hobbies radicular pain, pain with standing for long duration PT-OP-C Subjective Start: 08/12/19 07:48 Freq: Status: Active Protocol: Document 10/14/19 09:45 DCW (Rec: 10/14/19 10:17 DCW [id number]) OP-PT Subjective Patient Comments Patient Comments Pt scheduled today's appointment after noticing some pain and tightness in his posterior hip. Pt notes pain then went away pretty quickly, but he kept today's appointment to ensure it didn' t get worse. PT-OP-J Posture/Palpation/Skin Start: 08/12/19 07:48 Freq: Status: Active Protocol: Document 10/14/19 09:45 DCW (Rec: 10/14/19 10:12 DCW [id number]) Palpation Assessment Location One Palpation Location Piriformis Palpation Details Mild hypertonia PT-OP-K Range of Motion Start: 08/12/19 07:48 Freq: Status: Active Protocol: Document 10/14/19 09:45 DCW (Rec: 10/14/19 10:12 DCW [id number]) Hip Goniometric Range of Motion Hip ROM Limitations Comments Mild tightness in piriformis PT-OP-L Special Tests Start: 08/12/19 14:25 Freq: Status: Active Protocol: Document 10/14/19 09:45 DCW (Rec: 10/14/19 10:12 DCW [id number]) Special Tests Lumbar Spine Special Tests Straight Leg Raise Test Results negative PT-OP-Q Treatments Start: 08/12/19 07:48 Freq: Status: Active Protocol: Document 10/14/19 09:45 DCW (Rec: 10/14/19 10:17 DCW [id number]) Manual Therapy Treatment Soft Tissue Mobilization 3 Body Location Psoas Mobilization Type Sustained Pressure,Trigger Point Release Intensity/Depth Deep Body Position Supine 2 Body Location Piriformis Mobilization Type Strumming,Sustained Pressure, Trigger Point Release Intensity/Depth Deep Body Position Sidelying PT-OP-T Assessment and Plan Start: 08/12/19 07:48 Freq: Status: Active Protocol: Document 10/14/19 09:45 DCW (Rec: 10/14/19 10:17 DCW [id number]) Physical Therapy Assessment Goals Four Impairment hip tightness with + dural symptoms on SLR Senior Care Goal (LTG) Mustapha is able to stretch his piriformis and hamstring muscle without c/o dural tension LTG Duration 8 weeks Three Impairment muscle guarding and spasm of the lumbar paraspinals and piriformis Short Term Goal (STG) Mustapha is shown self release techniques to hold improve the fascial mobility of the piriformis and lumbar parspinal musculature STG Duration 4 weeks Two Impairment Pain prevents Mustapha from walking more than 1/2 mile Senior Care Goal (LTG) Mustapha is maggi to increase his walking to 2-3 miles without complaints of radicular or buttock pain LTG Duration 8 weeks One Impairment Right sided radicular pain rated 8/10 Short Term Goal (STG) Pt reports overall reduced complaints of radicular pain to 1-2/10 STG Duration 5 weeks Assessment Summary Assessment Pt did well today, will likely discharge, but pt would like case to remain open just a bit longer to make sure he continues to do well without therapy. Testing uncovered only mild piriformis tightness , pt likely suffered a mild strain. Physical Therapy Plan Frequency and Duration Frequency of Treatment 1x/Week Duration of Treatment 4 weeks Plan of Care Start Date 10/14/19 Plan of Care End Date 11/11/19 Therapeutic Interventions Therapeutic Interventions Home Exercise Program,Manual Therapy,Patient/Caregiver Education,Self-Care/Home Management,Soft Tissue Mobilization,Therapeutic Exercises Next Visit Focus/Plan Next Note Type Treatment Note Next Visit Plan Continue PT if patient feels that he needs further treatment. If he continues to do well We will DC PT
--- NOTE | 2019-10-14 10:18 | PT.OPPOC ---
Physical, Occupational & Speech Therapy At [facility] Current Diagnoses Radiculopathy, lumbar region (10/14/19) Visit Care Team Role Provider Type Sari Ford PA-C Attending Provider Non-Staff Primary Care Provider Referring Provider Specialty: Family Practice Address: [address] [place] [address], [id number] Email: Plan Of Care PT-OP-T Assessment and Plan Start: 08/12/19 07:48 Freq: Status: Active Protocol: Document 10/14/19 09:45 DCW (Rec: 10/14/19 10:17 DCW [id number]) Physical Therapy Assessment Goals Four Impairment hip tightness with + dural symptoms on SLR Rebar Fabricator Goal (LTG) Mustapha is able to stretch his piriformis and hamstring muscle without c/o dural tension LTG Duration 8 weeks Three Impairment muscle guarding and spasm of the lumbar paraspinals and piriformis Short Term Goal (STG) Mustapha is shown self release techniques to hold improve the fascial mobility of the piriformis and lumbar parspinal musculature STG Duration 4 weeks Two Impairment Pain prevents Mustapha from walking more than 1/2 mile Long-Term Goal (LTG) Mustapha is maggi to increase his walking to 2-3 miles without complaints of radicular or buttock pain LTG Duration 8 weeks One Impairment Right sided radicular pain rated 8/10 Short Term Goal (STG) Pt reports overall reduced complaints of radicular pain to 1-2/10 STG Duration 5 weeks Assessment Summary Assessment Pt did well today, will likely discharge, but pt would like case to remain open just a bit longer to make sure he continues to do well without therapy. Testing uncovered only mild piriformis tightness , pt likely suffered a mild strain. Physical Therapy Plan Frequency and Duration Frequency of Treatment 1x/Week Duration of Treatment 4 weeks Plan of Care Start Date 10/14/19 Plan of Care End Date 11/11/19 Therapeutic Interventions Therapeutic Interventions Home Exercise Program,Manual Therapy,Patient/Caregiver Education,Self-Care/Home Management,Soft Tissue Mobilization,Therapeutic Exercises Next Visit Focus/Plan Next Note Type Treatment Note Next Visit Plan Continue PT if patient feels that he needs further treatment. If he continues to do well We will DC PT Plan of Care Dates Plan of Care Start Date 10/14/19 Plan of Care End Date 11/11/19 Electronically Signed by: Margarito Becerra, PT 10/14/19 1018 Please Sign and Return: I have reviewed this Plan of Care and certify that the skilled therapy services above are required to meet the patient?s needs. Physician Signature Date Printed Name and Credentials Clinical Instructor Signature Printed Name and Credentials
--- NOTE | 2019-12-07 13:52 | PT.OPDS ---
Current Diagnoses Radiculopathy, lumbar region (10/14/19) Visit Care Team Role Provider Type Sari Ford PA-C Attending Provider Non-Staff Primary Care Provider Referring Provider Specialty: Family Practice Address: [address] [place] [address], [id number] Email: Visit Number Visit Number 9 Discharge Summary PT-OP-B Current Condition Start: 08/12/19 07:48 Freq: Status: Active Protocol: Document 08/12/19 14:15 [facility] (Rec: 08/12/19 14:23 [facility] [email or web address]) Current Condition History of Current Condition Onset Date May 2019 Current Complaints right sided sciatica History of Current Condition Mustapha reports his symptoms began late May when he was helping a neighbor move tile. His symptoms began with LBP and then progressed to right sided buttock pain and radicular pain down the right leg to the lateral aspect of his right foot. He notes this pain has effected his walking and now he is experiencing left sided knee pain. He has been on Gabapentin for nerve pain but doesn't feel this has helped. He did do a course of prednisone from 07/30/19-08/02 and this helped quite a bit but then the pain returned once he was done with the dose of prednisone. He reports he was ready to ask for more prednisone but then yesterday her made him self weed x 2 hours. He was bent over the whole time stretching his back and today his pain levels are much decreased. Treatment Goals Patient/Caregiver Goals to return to his prior level of function without pain Current Functional Impairments (Reported) Functional Limitations- Recreation/ limited in walking due to Hobbies radicular pain, pain with standing for long duration PT-OP-C Subjective Start: 08/12/19 07:48 Freq: Status: Active Protocol: Document 10/14/19 09:45 DCW (Rec: 10/14/19 10:17 DCW [id number]) OP-PT Subjective Patient Comments Patient Comments Pt scheduled today's appointment after noticing some pain and tightness in his posterior hip. Pt notes pain then went away pretty quickly, but he kept today's appointment to ensure it didn' t get worse. PT-OP-J Posture/Palpation/Skin Start: 08/12/19 07:48 Freq: Status: Active Protocol: Document 10/14/19 09:45 DCW (Rec: 10/14/19 10:12 DCW [id number]) Palpation Assessment Location One Palpation Location Piriformis Palpation Details Mild hypertonia PT-OP-K Range of Motion Start: 08/12/19 07:48 Freq: Status: Active Protocol: Document 10/14/19 09:45 DCW (Rec: 10/14/19 10:12 DCW [id number]) Hip Goniometric Range of Motion Hip ROM Limitations Comments Mild tightness in piriformis PT-OP-L Special Tests Start: 08/12/19 14:25 Freq: Status: Active Protocol: Document 10/14/19 09:45 DCW (Rec: 10/14/19 10:12 DCW [id number]) Special Tests Lumbar Spine Special Tests Straight Leg Raise Test Results negative PT-OP-T Assessment and Plan Start: 08/12/19 07:48 Freq: Status: Active Protocol: Document 12/07/19 13:51 [facility] (Rec: 12/07/19 13:51 [facility] [email or web address]) Physical Therapy Assessment Assessment Summary Assessment At time of last visit on Mustapha was doing well. He is ready to DC to a I hEP at this time Physical Therapy Plan Discharge Physical Therapy Discharge Reasons Goals Met Discharge Comments DC PT to a I HEP
== END 2019-12-08 11:19 ==
LOC: PHYS 09:45
PROVIDERS: PCP Physician Assistant Medical; Referring Provider Physician Assistant Medical; Visit Provider Physician Assistant Medical
DX: M54.16 Radiculopathy, lumbar region (principal)
CPT/HCPCS: 97110; 97140; 97161

== ENCOUNTER → 2020-07-07 14:47 | Outpatient (CLI) | payer OTHER, MEDICAID, SELFPAY ==
[2020-07-07] MEDS: COVID-19 VACC, Ad26(JANSSEN)/PF 0.5 ML IM (14:59)
== END ==
PROVIDERS: PCP Physician Assistant Medical; Visit Provider Internal Medicine
DX: Z23 Encounter for immunization (principal)
CPT/HCPCS: 0031A; 91303

== ENCOUNTER → 2020-07-21 07:44 | Outpatient (CLI) | payer OTHER, MEDICAID, SELFPAY ==
[2020-07-21 08:47] LABS: Add Manual Diff / Slide Review NO; Basophils Absolute Auto 100 /uL (0-100); Basophils Percent Auto 0.8 % (0-2); Eosinophils Absolute Auto 200 /uL (0-450); Eosinophils Percent Auto 2.3 % (2-4); Hematocrit 45.7 % (41-53); Lymphocytes Absolute Auto 1500 /uL (1100-4500); Lymphocytes Percent Auto 21.3 % (25-40); Mean Corpuscular HGB Conc 34.9 % (30-36); Mean Corpuscular Hemoglobin 31.7 PG (26-34); Mean Corpuscular Volume 90.8 fL (80-100); Monocytes Absolute Auto 500 /uL (0-900); Monocytes Percent Auto 6.7 % (3-14); Neutrophils Absolute Auto 5000 /uL (1500-7000); Neutrophils Percent Auto 68.9 % (50-75); Platelet Count 176 X10^3/uL (150-400); Red Blood Cell Count 5.03 X10^6/uL (4.5-5.9); Red Cell Distribution Width 13.1 % (11.6-14.8); White Blood Cell Count 7.2 X10^3/uL (4.5-11.0)
[2020-07-21 09:05] LABS: Alanine Aminotransferase 67 IU/L (<50); Albumin 4.5 g/dL (3.5-5.0); Alkaline Phosphatase 67 U/L (38-126); Aspartate Aminotransferase 46 IU/L (17-59); BUN Creatinine Ratio 13.3 (6-22); Bilirubin Total 1.3 mg/dL (0.2-1.3); Blood Urea Nitrogen 15 mg/dL (9-20); Calcium 9.9 mg/dL (8.4-10.2); Carbon Dioxide 30 mmol/L (22-32); Chloride 101 mmol/L (98-107); Cholesterol 208 mg/dL (140-199); Estimated Glomerular Filt Rate > 60.0 mL/min (>60); Globulin 2.3 g/dL (1.7-4.1); Glucose 114 mg/dL (70-100); HDL Cholesterol 33 mg/dL (40-60); HEMOLYSIS < 15 (0-50); LDL Cholesterol Calculated 122 mg/dL (<100); Potassium 4.5 mmol/L (3.4-5.1); Sodium 139 mmol/L (137-145); Total Protein 6.8 g/dL (6.3-8.2); Triglycerides 266 mg/dL (35-150)
== END ==
PROVIDERS: PCP Physician Assistant Medical; Referring Provider Physician Assistant Medical; Visit Provider Physician Assistant Medical
DX: E78.2 Mixed hyperlipidemia (principal)
CPT/HCPCS: 36415; 80053; 80061; 85025

== ENCOUNTER → 2021-08-17 08:34 | Outpatient (CLI) | payer OTHER, MEDICAID, SELFPAY ==
--- NOTE | 2021-08-17 08:38 | DI.RAD.S_ITS ---
PROCEDURE: XR CHEST 2V INDICATIONS: NIGHT SWEATS TECHNIQUE: 2 views of the chest were acquired. COMPARISON: None. FINDINGS: Surgical changes and devices: None. Lungs and pleura: Lungs are clear. No pleural effusions or pneumothorax. Mediastinum: Mediastinal contours are normal. Heart size is normal. Bones and chest wall: No suspicious bony abnormalities. Soft tissues appear unremarkable. IMPRESSION: No acute cardiopulmonary disease process. Dictated by: Deisy Huff MD, PhD on 08/17/2021 at 11:48 Approved by: Deisy Huff MD, PhD on 08/17/2021 at 11:48
[2021-08-17 09:36] LABS: Add Manual Diff / Slide Review NO; Basophils Absolute Auto 100 /uL (0-100); Eosinophils Absolute Auto 200 /uL (0-450); Hematocrit 46.9 % (41-53); Hemoglobin 16.4 g/dL (13.5-17.5); Lymphocytes Absolute Auto 1500 /uL (1100-4500); Mean Corpuscular HGB Conc 34.9 % (30-36); Mean Corpuscular Hemoglobin 30.9 PG (26-34); Mean Corpuscular Volume 88.4 fL (80-100); Monocytes Absolute Auto 500 /uL (0-900); Monocytes Percent Auto 7.8 % (3-14); Neutrophils Absolute Auto 3900 /uL (1500-7000); Neutrophils Percent Auto 64.2 % (50-75); Platelet Count 158 X10^3/uL (150-400); Red Cell Distribution Width 12.8 % (11.6-14.8); White Blood Cell Count 6.1 X10^3/uL (4.5-11.0)
[2021-08-17 10:12] LABS: Alanine Aminotransferase 90 IU/L (<50); Albumin 4.6 g/dL (3.5-5.0); Albumin Globulin Ratio 1.8 (1.0-2.8); Alkaline Phosphatase 61 U/L (38-126); Aspartate Aminotransferase 49 IU/L (17-59); BUN Creatinine Ratio 12.1 (6-22); Bilirubin Total 1.1 mg/dL (0.2-1.3); Blood Urea Nitrogen 14 mg/dL (9-20); C-Reactive Protein Quant 0.5 mg/dL (<1.0); Calcium 9.1 mg/dL (8.4-10.2); Carbon Dioxide 33 mmol/L (22-32); Chloride 103 mmol/L (98-107); Estimated Glomerular Filt Rate > 60 mL/min (>60); Globulin 2.6 g/dL (1.7-4.1); Glucose 122 mg/dL (70-100); HEMOLYSIS < 15 (0-50); Potassium 4.2 mmol/L (3.4-5.1); Sodium 140 mmol/L (137-145); Total Protein 7.2 g/dL (6.3-8.2)
[2021-08-17 10:19] LABS: Appearance Urine UA CLEAR; Bilirubin Urine UA NEGATIVE (NEGATIVE); Color Urine UA YELLOW; Glucose Urine UA NEGATIVE (Negative); Ketones Urine UA NEGATIVE (NEGATIVE); Leukocyte Esterase Urine UA NEGATIVE (NEGATIVE); Nitrite Urine UA NEGATIVE (Negative); Occult Blood Urine UA NEGATIVE (Negative); Protein Urine UA NEGATIVE (Negative); Urobilinogen Urine UA 0.2 E.U./dL (0.2); pH Urine UA 6.5 (4.5-8.0)
[2021-08-17 10:23] LABS: Bacteria Urine None Seen; Culture Indicated Urine Cult Not Indicated; RBC Urine None Seen (0-5/HPF); Urine Comments Microscopic Normal; WBC Urine None Seen (0-5/HPF)
[2021-08-17 10:37] LABS: TSH w/ Reflex to FT4 2.08 uIU/mL (0.47-4.68)
[2021-08-17 17:16] LABS: HIV 1 & 2 Ab/Ag 4th Gen Combo NEGATIVE (NEGATIVE)
[2021-08-21 00:37] LABS: QuantiFERON Mitogen Value >10.00 IU/mL (.); QuantiFERON Nil Value 0.05 IU/mL (.); QuantiFERON TB Gold Plus Negative (Negative); QuantiFERON TB1 Ag Value 0.04 IU/mL (.); QuantiFERON TB2 Ag Value 0.03 IU/mL (.)
== END ==
PROVIDERS: PCP Physician Assistant; Referring Provider Physician Assistant; Visit Provider Physician Assistant
DX: R61 Generalized hyperhidrosis (principal)
CPT/HCPCS: 36415; 71046; 80053; 81001; 84443; 85025; 86140; 86480; 87389

== ENCOUNTER → 2021-08-30 07:02 | Outpatient (CLI) | payer OTHER, MEDICAID, SELFPAY ==
[2021-08-30 08:29] LABS: Hemoglobin A1C% w Est Avg Glu 5.4 % (4.0-6.0)
[2021-08-30 09:04] LABS: Prostate Specific Antigen 1.95 ng/mL (0.10-4.00)
[2021-08-30 09:07] LABS: Testosterone 251 ng/dL (71.8-623)
== END ==
PROVIDERS: PCP Physician Assistant; Referring Provider Physician Assistant; Visit Provider Physician Assistant
DX: R53.83 Other fatigue (principal); N40.0 Benign prostatic hyperplasia without lower urinary tract symptoms; R73.9 Hyperglycemia, unspecified
CPT/HCPCS: 36415; 83036; 84153; 84403

== ENCOUNTER → 2021-09-06 12:54 | Outpatient (ROUT) | payer OTHER, MEDICAID, SELFPAY ==
[2021-09-06 13:19] LABS: COVID19 -Nasal RAPID Negative (Negative)
== END ==
PROVIDERS: PCP Physician Assistant; Visit Provider Physician Assistant
DX: Z20.822 Contact with and (suspected) exposure to COVID-19 (principal)
CPT/HCPCS: 87635

== ENCOUNTER → 2021-09-07 07:51 | Outpatient (CLI) | payer OTHER, MEDICAID, SELFPAY ==
--- NOTE | 2021-09-07 | DI.RAD.S_ITS ---
PROCEDURE: XR CHEST 2V INDICATIONS: COUGH TECHNIQUE: 2 views of the chest were acquired. COMPARISON: [facility], CR, XR CHEST 2V, 08/17/2021, 8:29. FINDINGS: Surgical changes and devices: None. Lungs and pleura: Lungs are clear. No pleural effusions or pneumothorax. Mediastinum: Mediastinal contours are normal. Heart size is normal. Bones and chest wall: No suspicious bony abnormalities. Soft tissues appear unremarkable. IMPRESSION: No acute process. Dictated by: Verito Garrison M.D. on 09/07/2021 at 13:29 Approved by: Verito Garrison M.D. on 09/07/2021 at 13:30
== END ==
PROVIDERS: PCP Physician Assistant; Referring Provider Physician Assistant; Visit Provider Physician Assistant
DX: R05.9 Cough, unspecified (principal)
CPT/HCPCS: 71046

== ENCOUNTER → 2022-01-26 09:33 | Outpatient (CLI) | payer OTHER, MEDICAID, SELFPAY ==
[2022-01-26 11:12] LABS: Hemoglobin A1C% w Est Avg Glu 5.4 % (4.0-6.0)
[2022-01-26 11:59] LABS: Creatinine Urine Random 270.9 mg/dL
[2022-01-26 12:00] LABS: Alanine Aminotransferase 56 IU/L (<50); Albumin 4.3 g/dL (3.5-5.0); Albumin Globulin Ratio 1.8 (1.0-2.8); Alkaline Phosphatase 52 U/L (38-126); Aspartate Aminotransferase 34 IU/L (17-59); BUN Creatinine Ratio 9.6 (6-22); Bilirubin Total 1.5 mg/dL (0.2-1.3); Blood Urea Nitrogen 12 mg/dL (9-20); Calcium 9.3 mg/dL (8.4-10.2); Carbon Dioxide 28 mmol/L (22-32); Chloride 103 mmol/L (98-107); Cholesterol 196 mg/dL (140-199); Estimated Glomerular Filt Rate > 60 mL/min (>60); Globulin 2.4 g/dL (1.7-4.1); Glucose 99 mg/dL (80-110); HDL Cholesterol 30 mg/dL (40-60); LDL Cholesterol Calculated 115 mg/dL (<100); Potassium 4.4 mmol/L (3.4-5.1); Sodium 141 mmol/L (137-145); Total Protein 6.7 g/dL (6.3-8.2); Triglycerides 255 mg/dL (35-150); Uric Acid 6.8 mg/dL (3.5-8.5)
[2022-01-26 12:01] LABS: Microalbumi Creatinin Ratio Ur 2.9 ug/mg CR (<30); Microalbumin Urine Random 0.8 mg/dL (0-1.6)
[2022-01-26 12:14] LABS: Vitamin D 25 Hydroxy (D3) 31.2 ng/mL (30.0-100.0)
[2022-01-26 13:08] LABS: Folate 13.2 ng/mL (2.76-20.0); HEMOLYSIS < 15 (0-50); Vitamin B12 358 pg/mL (239-931)
== END ==
PROVIDERS: PCP Family Medicine; Referring Provider Family Medicine; Visit Provider Family Medicine
DX: R74.8 Abnormal levels of other serum enzymes (principal); R73.01 Impaired fasting glucose; N40.0 Benign prostatic hyperplasia without lower urinary tract symptoms; F32.9 Major depressive disorder, single episode, unspecified; E56.9 Vitamin deficiency, unspecified; M1A.0720 Idiopathic chronic gout, left ankle and foot, without tophus (tophi)
CPT/HCPCS: 36415; 80053; 80061; 82043; 82306; 82570; 82607; 82746; 83036; 84153; 84550

== ENCOUNTER → 2022-05-19 09:02 | Outpatient (CLI) | payer OTHER, MEDICAID, SELFPAY ==
[2022-05-19 11:06] LABS: Creatinine Urine Random 146.4 mg/dL
[2022-05-19 11:11] LABS: Microalbumin Urine Random < 0.6 mg/dL (0-1.6)
[2022-05-19 11:26] LABS: Alanine Aminotransferase 57 IU/L (<50); Albumin 4.1 g/dL (3.5-5.0); Albumin Globulin Ratio 1.8 (1.0-2.8); Alkaline Phosphatase 54 U/L (38-126); Aspartate Aminotransferase 36 IU/L (17-59); BUN Creatinine Ratio 15.7 (6-22); Bilirubin Total 1.5 mg/dL (0.2-1.3); Blood Urea Nitrogen 16 mg/dL (9-20); Calcium 9.2 mg/dL (8.4-10.2); Carbon Dioxide 29 mmol/L (22-32); Chloride 102 mmol/L (98-107); Cholesterol 185 mg/dL (140-199); Estimated Glomerular Filt Rate > 60 mL/min (>60); Globulin 2.3 g/dL (1.7-4.1); Glucose 102 mg/dL (80-110); HDL Cholesterol 41 mg/dL (40-60); HEMOLYSIS < 15 (0-50); LDL Cholesterol Calculated 121 mg/dL (<100); Potassium 4.7 mmol/L (3.4-5.1); Sodium 138 mmol/L (137-145); Total Protein 6.4 g/dL (6.3-8.2); Triglycerides 116 mg/dL (35-150)
== END ==
PROVIDERS: PCP Family Medicine; Referring Provider Family Medicine; Visit Provider Family Medicine
DX: I10 Essential (primary) hypertension (principal); R79.89 Other specified abnormal findings of blood chemistry; K75.81 Nonalcoholic steatohepatitis (NASH); E78.1 Pure hyperglyceridemia
CPT/HCPCS: 36415; 80053; 80061; 82043; 82570

== ENCOUNTER → 2022-07-27 09:46 | Outpatient (CLI) | payer OTHER, MEDICAID, SELFPAY ==
[2022-07-27 15:18] LABS: TSH w/ Reflex to FT4 1.89 uIU/mL (0.47-4.68)
== END ==
PROVIDERS: PCP Family Medicine; Referring Provider Family Medicine; Visit Provider Family Medicine
DX: R61 Generalized hyperhidrosis (principal)
CPT/HCPCS: 36415; 84443

== ENCOUNTER → 2022-12-28 15:08 | Outpatient (CLI) | payer OTHER, MEDICAID, SELFPAY ==
--- NOTE | 2022-12-28 | DI.US.S_ITS ---
PROCEDURE: US SOFT TISSUE HEAD AND NECK INDICATIONS: LEFT POSTERIOR NECK LUMP TECHNIQUE: Real-time scanning was performed of the neck region of interest, with image documentation. COMPARISON: None. FINDINGS: Isoechoic subcutaneous soft tissue mass corresponding to the palpable abnormality measuring up to 2.4 cm. No internal vascularity. IMPRESSION: Possible soft tissue lipoma; however differential would include both benign and malignant etiologies. Recommend continued clinical follow-up. If enlarging/changing, consider further cross-sectional imaging or sampling. Dictated by: Zev BRIGHT Interpreted: Jose M Wright MD on 12/28/2022 at 16:03 Transcribed by: ISABELLE on 12/28/2022 at 16:04 Approved by: Jose M Wright M.D. on 12/29/2022 at 8:22
--- NOTE | 2022-12-28 | DI.US.S_ITS ---
ULTRASOUND OF RIGHT AXILLA: 12/28/2022 CLINICAL: Left axilla swelling/asymmetry per patient. No prior exams were available for comparison. Color flow and real-time ultrasound of the right axilla were performed. Lindsay scale images of the real-time examination were reviewed. There is a oval normal lymph node in the right axilla. This oval normal lymph node displays fatty hilum. This correlates as palpated. Color flow imaging demonstrates that there is vascularity present. Cortical thickness is within normal limits. IMPRESSION: BENIGN There is no sonographic evidence of malignancy. Normal appearing right axillary lymph node in the region of the palpable abnormality. Exam findings were conveyed to the patient. Patient is advised to monitor for significant change. Clinical follow-up as needed. CT of the chest could be considered for further evaluation. This exam was interpreted at Station ID: [id number]. Electronically Signed By: Ming Sims M.D. slc/:12/28/2022 15:51:05 letter sent: Normal Exam Ultrasound BI-RADS: 2 Benign
== END ==
PROVIDERS: PCP Nurse Practitioner Family; Referring Provider Nurse Practitioner Family; Visit Provider Nurse Practitioner Family
DX: R22.1 Localized swelling, mass and lump, neck (principal); R22.2 Localized swelling, mass and lump, trunk
CPT/HCPCS: 76536; 76882

== ENCOUNTER → 2023-02-04 09:32 | Outpatient (CLI) | payer OTHER, SELFPAY ==
--- NOTE | 2023-02-04 09:34 | DI.RAD.S_ITS ---
PROCEDURE: XR FOOT RT MIN 3V INDICATIONS: Right foot injury L I TECHNIQUE: 3 views of the foot were acquired. COMPARISON: None. FINDINGS: Bones: No fractures or dislocations. Degenerative arthritis involving the great toe IP joint, 2nd toe DIP joint, and 5th toe DIP joint. No suspicious bony lesions. Soft tissues: No tibiotalar joint effusion. Achilles tendon appears normal. IMPRESSION: Degenerative arthritis. No acute fracture or dislocation. Dictated by: Aj Abarca M.D. on 02/04/2023 at 20:38 Approved by: Aj Abarca M.D. on 02/04/2023 at 20:39
== END ==
PROVIDERS: PCP Nurse Practitioner Family; Referring Provider Nurse Practitioner Family; Visit Provider Nurse Practitioner Family
DX: S90.31XA Contusion of right foot, initial encounter (principal); M19.071 Primary osteoarthritis, right ankle and foot; X58.XXXA Exposure to other specified factors, initial encounter
CPT/HCPCS: 73630

== ENCOUNTER → 2023-08-10 08:51 | Outpatient (CLI) | payer OTHER, SELFPAY ==
[2023-08-10 09:21] LABS: Add Manual Diff / Slide Review NO; Basophils Absolute Auto 100 /uL (0-100); Basophils Percent Auto 1.1 % (0-2); Eosinophils Absolute Auto 200 /uL (0-450); Eosinophils Percent Auto 2.5 % (2-4); Hematocrit 45.4 % (41-53); Hemoglobin 15.7 g/dL (13.5-17.5); Lymphocytes Absolute Auto 1300 /uL (1100-4500); Mean Corpuscular HGB Conc 34.6 % (30-36); Mean Corpuscular Volume 89.7 fL (80-100); Monocytes Absolute Auto 300 /uL (0-900); Monocytes Percent Auto 5.5 % (3-14); Neutrophils Absolute Auto 4500 /uL (1500-7000); Neutrophils Percent Auto 70.9 % (50-75); Platelet Count 193 X10^3/uL (150-400); Red Blood Cell Count 5.06 X10^6/uL (4.5-5.9); Red Cell Distribution Width 12.6 % (11.6-14.8); White Blood Cell Count 6.3 X10^3/uL (4.5-11.0)
[2023-08-10 09:56] LABS: Alanine Aminotransferase 40 IU/L (<50); Albumin 4.3 g/dL (3.5-5.0); Albumin Globulin Ratio 1.9 (1.0-2.8); Alkaline Phosphatase 57 U/L (38-126); Aspartate Aminotransferase 28 IU/L (17-59); BUN Creatinine Ratio 13.9 (6-22); Bilirubin Total 1.2 mg/dL (0.2-1.3); Blood Urea Nitrogen 14 mg/dL (9-20); Calcium 9.5 mg/dL (8.4-10.2); Carbon Dioxide 27 mmol/L (22-32); Chloride 107 mmol/L (98-107); Estimated Glomerular Filt Rate > 60 mL/min (>60); Globulin 2.3 g/dL (1.7-4.1); Glucose 111 mg/dL (80-110); HEMOLYSIS < 15 (0-50); Potassium 4.3 mmol/L (3.4-5.1); Sodium 140 mmol/L (137-145); Total Protein 6.6 g/dL (6.3-8.2); Uric Acid 5.7 mg/dL (3.5-8.5)
[2023-08-10 10:29] LABS: Testosterone 390 ng/dL (71.8-623)
[2023-08-12 16:38] LABS: Hep C Virus Ab w/Reflex Quant NEGATIVE s/c (NEGATIVE)
[2023-08-12 20:02] LABS: Cholesterol HDL Ratio 5.8 ratio (0.0-5.0); Cholesterol,Total 187 mg/dL (100-199); HDL Cholesterol 32 mg/dL (>39); LDL Cholesterol Cal 127 mg/dL (0-99); Triglycerides 154 mg/dL (0-149); VLDL Cholesterol Cal 28 mg/dL (5-40)
== END ==
PROVIDERS: PCP Nurse Practitioner Family; Referring Provider Nurse Practitioner Family; Visit Provider Nurse Practitioner Family
DX: I10 Essential (primary) hypertension (principal); R23.2 Flushing; M10.9 Gout, unspecified; E78.5 Hyperlipidemia, unspecified; Z11.59 Encounter for screening for other viral diseases; F32.A Depression, unspecified; N40.1 Benign prostatic hyperplasia with lower urinary tract symptoms
CPT/HCPCS: 36415; 80053; 80061; 83735; 84153; 84154; 84403; 84550; 85025; 86480; 86803; 87389

== ENCOUNTER → 2023-09-09 06:52 | Outpatient (CLI) | payer OTHER, SELFPAY ==
--- NOTE | 2023-09-09 06:53 | DI.US.S_ITS ---
PROCEDURE: US ABDOMEN LIMITED INDICATIONS: Umbilical hernia / lower abd pain TECHNIQUE: Real-time scanning was performed of the abdominal wall and left inguinal region, with image documentation. COMPARISON: [facility], , US ABDOMEN COMPLETE, 11/27/2017, 11:42. FINDINGS: No periumbilical hernia is seen. No left inguinal hernia. Left testicle is high-riding near the inguinal canal within in the seated position. Left testicle appears normal within the scrotum in the standing position. No left testicle masses seen. No enlarged left inguinal lymph nodes. IMPRESSION: 1. No periumbilical hernia demonstrated. 2. No left inguinal hernia demonstrated. Dictated by: Ming Sims M.D. on 09/09/2023 at 9:23 Approved by: Ming Sims M.D. on 09/09/2023 at 9:27
== END ==
LOC: US 06:52
PROVIDERS: PCP Nurse Practitioner Family; Referring Provider Nurse Practitioner Family; Visit Provider Nurse Practitioner Family
DX: K42.9 Umbilical hernia without obstruction or gangrene (principal); R10.30 Lower abdominal pain, unspecified
CPT/HCPCS: 76705

== ENCOUNTER → 2024-09-03 07:48 | Outpatient (CLI) | payer OTHER, SELFPAY ==
[2024-09-03 09:29] LABS: Add Manual Diff / Slide Review NO; Basophils Absolute Auto 100 /uL (0-100); Eosinophils Absolute Auto 100 /uL (0-450); Eosinophils Percent Auto 2.2 % (2-4); Hematocrit 45.2 % (41-53); Hemoglobin 15.4 g/dL (13.5-17.5); Lymphocytes Absolute Auto 1200 /uL (1100-4500); Lymphocytes Percent Auto 21.6 % (25-40); Mean Corpuscular Volume 91.1 fL (80-100); Monocytes Absolute Auto 400 /uL (0-900); Monocytes Percent Auto 6.9 % (3-14); Neutrophils Absolute Auto 3800 /uL (1500-7000); Neutrophils Percent Auto 68.3 % (50-75); Platelet Count 184 X10^3/uL (150-400); Red Blood Cell Count 4.96 X10^6/uL (4.5-5.9); Red Cell Distribution Width 13.5 % (11.6-14.8); White Blood Cell Count 5.5 X10^3/uL (4.5-11.0)
[2024-09-03 09:45] LABS: Alanine Aminotransferase 36 IU/L (<50); Albumin 4.4 g/dL (3.5-5.0); Albumin Globulin Ratio 2.1 (1.0-2.8); Alkaline Phosphatase 48 U/L (38-126); Aspartate Aminotransferase 32 IU/L (17-59); BUN Creatinine Ratio 18.8 (6-22); Bilirubin Total 1.4 mg/dL (0.2-1.3); Blood Urea Nitrogen 21 mg/dL (9-20); Calcium 9.4 mg/dL (8.4-10.2); Carbon Dioxide 24 mmol/L (22-32); Chloride 106 mmol/L (98-107); Cholesterol 208 mg/dL (140-199); Estimated Glomerular Filt Rate > 60 mL/min (>60); Globulin 2.1 g/dL (1.7-4.1); Glucose 102 mg/dL (70-99); HDL Cholesterol 39 mg/dL (40-60); HEMOLYSIS < 15 (0-50); LDL Cholesterol Calculated 135 mg/dL (<100); Potassium 4.7 mmol/L (3.4-5.1); Sodium 139 mmol/L (137-145); Total Protein 6.5 g/dL (6.3-8.2); Triglycerides 169 mg/dL (35-150)
[2024-09-03 10:12] LABS: TSH w/ Reflex to FT4 1.73 uIU/mL (0.47-4.68)
[2024-09-03 10:15] LABS: Prostate Specific Antigen 2.29 ng/mL (0.10-4.00)
[2024-09-08 07:09] LABS: PSA, Total 2.1 ng/mL (0.0-4.0)
== END ==
PROVIDERS: PCP Family Medicine; Referring Provider Family Medicine; Visit Provider Family Medicine
DX: Z00.00 Encounter for general adult medical examination without abnormal findings (principal)
CPT/HCPCS: 36415; 80053; 80061; 84153; 84443; 85025

== ENCOUNTER → 2024-09-03 10:36 | Outpatient (CLI) | payer OTHER, SELFPAY ==
--- NOTE | 2024-09-03 10:38 | DI.US.S_ITS ---
PROCEDURE: US SCROTUM INDICATIONS: testicular pain TECHNIQUE: Real-time scanning was performed of the scrotum and testicles, with image documentation. Color and pulse Doppler interrogation was performed of both testicles. COMPARISON: None. FINDINGS: Right: Testicle is normal in size at 4.5 x 3.5 x 2.3 cm, and homogenous in echotexture. Epididymis is normal in overall size and morphology. Mild scrotal wall thickening with small hydrocele.. Left: Testicle is normal in size at 5.4 x 3.6 x 2 cm, and homogeneous in echotexture. Epididymis is normal in overall size and morphology. Small left varicocele. Overlying scrotal skin is normal in thickness. Doppler: Color and pulse Doppler demonstrate normal and symmetric arterial flow in both testicles. IMPRESSION: 1. Mild scrotal wall thickening on the right, with small right hydrocele, may be due to cellulitis in the proper context. 2. No testicular parenchymal lesions or acute abnormality otherwise. Dictated by: Johan Gallegos M.D. on 09/03/2024 at 20:44 Approved by: Johan Gallegos M.D. on 09/03/2024 at 20:46
== END ==
PROVIDERS: PCP Family Medicine; Referring Provider Family Medicine; Visit Provider Family Medicine
DX: Z00.00 Encounter for general adult medical examination without abnormal findings (principal); N50.812 Left testicular pain; N43.3 Hydrocele, unspecified
CPT/HCPCS: 36415; 76870; 80053; 80061; 84153; 84154; 84443; 85025; 93975